=== PATIENT | female | born 1995 | race African-American/Black ===

== ENCOUNTER 2024-01-03 06:25 | Emergency (ER) | payer BC ==
[~2024-01-03] VITALS: Ht 160 cm; Wt 72.6 kg
[2024-01-03 06:30] VITALS: PULSE 95; RESP 22; TEMP 98
[2024-01-03] MEDS: PREDNISONE 20 MG TAB PO STA (06:44)
[2024-01-03] MEDS ORDERED: VENTOLIN HFA18 GM INH (07:15)
[2024-01-03] MEDS ORDERED: PREDNISONE20 MG PO (07:15)
[2024-01-03 07:20] VITALS: PULSE 80; RESP 18; O2SAT 99
[2024-01-03] MEDS: ALBUTEROL/IPRATROPIUM 3 ML NEB NEB STA (07:22)
[2024-01-03 07:52] VITALS: BP 122/90; PULSE 97; RESP 16; O2SAT 100
== END 2024-01-03 09:31 | disposition home or self-care (01) ==
LOC: ER 07:22
DX: R06.02 Shortness of breath (principal); J45.909 Unspecified asthma, uncomplicated
CPT/HCPCS: 94640; 94799; 99282; J7512